=== PATIENT | female | born 1985 | race Caucasian/White ===

== ENCOUNTER → 2017-05-11 | Outpatient (CLI) | payer OTHER | END | disposition home or self-care (01) | LOC: C.LAB1850 15:14 | PROVIDERS: ATTEND Obstetrics & Gynecology | DX: O02.1 Missed abortion (principal); Z3A.00 Weeks of gestation of pregnancy not specified ==

== ENCOUNTER → 2017-05-15 | Outpatient (CLI) | payer OTHER | END | disposition home or self-care (01) | LOC: C.PATHSPEC 08:14 | PROVIDERS: ATTEND Obstetrics & Gynecology | DX: O02.1 Missed abortion (principal) ==

== ENCOUNTER → 2017-11-07 | Outpatient (CLI) | payer OTHER ==
--- NOTE | 2017-11-07 15:23 | MAMMOGRAPHY REPORT ---
ULTRASOUND OF LEFT BREAST: 11/07/2017 CLINICAL HISTORY: The patient is here for follow-up of a palpable left breast mass. She had an ultra sound at an outside institution in 2014. She feels like the lump has not clinically changed in size since the 2015 exam. COMPARISON: Prior outside ultrasound exam dated 07/19/2015 from [facility]. TECHNIQUE: Real-time targeted ultrasound of the left breast was performed. FINDINGS: Targeted ultrasound was performed of the area of the palpable lump pointed out by the patie nt, in the left breast at 5:00 approximately 2 cm from the nipple. At the site of the palpable lump there is a lobulated non-circumscribed hypoechoic solid mass which measures 1.6 x 0.9 x 1.7 cm. The mass appears increased in size compared to the outside ultrasound exam, where the mass previously judd sured 1.2 x 0.6 x 1.2 cm. Given that the mass has increased in size, it is indeterminate and ultraso und-guided core needle biopsy is recommended for further evaluation. IMPRESSION: ACR BI-RADS CATEGORY 4: SUSPICIOUS - FOLLOW-UP RECOMMENDED Interval increase in size of palpable hypoechoic 1.7 cm mass in the left breast at 5:00, compared to the prior outside 2014 ultrasound exam. 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 A phone call was made to the physician's office to confirm faxed results were received. The patient was verbally notified of the results. She tentatively scheduled the biopsy before leaving the depart ment. Nely Sutherland M.D. ah/:11/07/2017 09:14:50 Check Examiner: Mima ELLER)(Feliberto), [facility] letter sent: Abnormal 11/08 BI-RADS Code: ACR BI-RADS Category 4: Suspicious
== END | disposition home or self-care (01) ==
LOC: C.MAMM 08:49
PROVIDERS: ATTEND Physician Assistant Medical
DX: N63.20 Unspecified lump in the left breast, unspecified quadrant (principal)

== ENCOUNTER → 2017-11-15 | Outpatient (CLI) | payer OTHER ==
--- NOTE | 2017-11-15 13:01 | Discharge Instructions ---
Discharge Instructions Procedure Procedure Date: Nov 15, 2017. Reason for visit: Left Mass. Discharge Discharge Date: Nov 15, 2017. Discharge Diagnosis: status post breast biopsy Instructions Activity Recommendations: Additional Limitations (see below) Return to School/Work: no limitations Recommended Home Diet: No Limitations Provider Instructions: ACTIVITY RECOMMENDATIONS: * No lifting, pushing, pulling or exercising the affected side for three days. RETURN TO SCHOOL/WORK: * You may return to work/school after the procedure, but do not perform any strenuous activities for 24 to 48 hours. MEDICATIONS: * Tylenol (two 325 mg) every four to six hours if needed for mild pain (if not allergic to Tylenol). DIET: * Resume previous diet. SPECIAL CARE INSTRUCTIONS: * Keep biopsy site dry for 24 hours. May shower after 24 hours, but do not soak (bathe) incision. * May remove Tegaderm (plastic patch) tomorrow AFTER showering. * Leave the steri-strips on for one week. Allow the steri-strips to fall off by themselves. If not off after one week, you may remove them. You may place a Bandaid crosswise over the strips, if desired. * Apply ice 10 minutes on and 10 minutes off as needed. * Wear a bra at bedtime to sleep more comfortably for 2-3 days. * Your referring physician should have the results after approximately 5 to 7 business days. * Call for unusual bleeding, fever, drainage, etc or if you have any questions call during normal business hours or after hours call Dr Sutherland, . FOLLOW UP VISIT: Follow-up with Referring Physician as scheduled. Jazmin Solis Recommendations: Call your doctor if: * Temperature above 101 degrees * Pain not relieved by pain medicine ordered * There is increased drainage or redness from any incision * You have any unanswered questions or concerns. Your Doctors Instructions noted above were prepared by provider Nely Sutherland. Patient Signature Section: Patient Instructions Signature Page Zakiya Hill Patient (or Guardian) Signature/Date: I have read and understand the instructions given to me by my caregivers. Caregiver/RN/Doctor Signature/Date: The above-named patient and/or guardian has received patient instructions on this date. + Original Patient Signature Page (only) stays with chart. Please make copy for patient.
--- NOTE | 2017-11-16 07:44 | MAMMOGRAPHY REPORT ---
ULTRASOUND GUIDED BIOPSY LEFT BREAST: 11/15/2017 CLINICAL HISTORY: Left 5:00 breast mass. PATIENT CONSENT: The procedure, risks and benefits were discussed with the patient and informed writt en consent was obtained. A timeout was performed immediately prior to the procedure. PROCEDURE DESCRIPTION: With ultrasound guidance, aseptic technique, and lidocaine as the local anesth etic (1% lidocaine to anesthetize the skin and 1% lidocaine with epinephrine to anesthetize the deepe r tissues), the mass of concern in the left 5:00 breast was sampled 4 times with a 14-gauge Achieve b iopsy needle. Immediately thereafter, with ultrasound guidance, aseptic technique, and lidocaine as the local anesthetic, a metallic localizer clip was placed centrally in the mass. Direct pressure wa s applied to the site immediately post procedure and hemostasis was achieved. The patient tolerated the procedure without complication. She was given wound care instructions. The specimens were sent t o pathology for analysis. COMPARISON: Comparison is made to exams dated: 11/07/2017 ultrasound - [facility] an d 07/19/2015 ultrasound. IMPRESSION: ULTRASOUND GUIDED BIOPSY Ultrasound-guided core needle biopsy of the left 5:00 breast mass, with clip placement. The patient will receive pathology results from her referring provider. Nely Sutherland M.D. /:11/15/2017 13:02:50 Office Inspector: Lori Givens, [facility]
== END | disposition home or self-care (01) ==
LOC: C.MAMM 12:35
PROVIDERS: ATTEND Physician Assistant Medical
DX: N60.92 Unspecified benign mammary dysplasia of left breast (principal)